=== PATIENT | female | born 1995 | race Caucasian/White ===

== ENCOUNTER 2019-10-20 00:02 | Inpatient (IN) | payer OTHER ==
[2019-10-20 00:33] LABS: APPEARANCE,URINE CLEAR; BILIRUBIN,URINE NEGATIVE (NEGATIVE); COLOR,URINE STRAW; GLUCOSE, URINE NEGATIVE (NEGATIVE); KETONES,URINE NEGATIVE (NEGATIVE); LEUKOCYTE ESTERASE,URINE TRACE (NEGATIVE); NITRITE,URINE NEGATIVE (NEGATIVE); PROTEIN,URINE NEGATIVE (NEGATIVE); UROBILINOGEN,URINE NEGATIVE mg/dL (<2.0)
[2019-10-20] MEDS ORDERED: OXYTOCIN 10 UNIT/ML VIAL ONE (00:33)
[2019-10-20] MEDS ORDERED: LIDOCAINE 1% INJ-PF (10 MG/ML) 30 ML SDV ONE (00:34)
[2019-10-20] MEDS ORDERED: MISOPROSTOL 0.2 MG TABLET ONE (00:34)
[2019-10-20] MEDS ORDERED: OXYTOCIN/0.9 % SODIUM CHLORIDE 30 UNIT/500 ML RTUINJ ONE (00:34)
[2019-10-20] MEDS ORDERED: RINGERS SOLUTION,LACTATED 1,000 ML IV PRN (00:38)
--- NOTE | 2019-10-20 00:42 | Admission Physical ---
Datetime Report Generated by CPN: 10/20/2019 00:42 CURRENT ADMISSION Chief Complaint: Uterine Contractions Indication for Induction: Not Applicable Admit Impression : Active Labor Admit Plan: Admit to Unit; Initiate Labor Protocol ALLERGIES Medication Allergies: Sulfa (Sulfonamide Antibiotics) (10/20/2019) OBSTETRICAL HISTORY EDC: 10/22/2019 00:00 : 1 Para: 0 Term: 0 : 0 SAB: 0 IAB: 0 Ectopic: 0 Livin Cesareans: 0 VBACs: 0 Multiple Births: 0 PHYSICAL EXAM General: Normal HEENT: Normal Neurologic: Normal Thyroid: Normal Heart: Normal Lungs: Normal Breast: Deferred Back: Normal Abdomen: Normal Genitourinary Exam: Normal Extremities: Normal DTRs: Normal Pelvic Type: Adequate Vital Signs: Reviewed VAGINAL EXAM Dilatation: 5 Effacement: 100 Station: -2 MEMBRANES Pooling: Negative Membranes: Intact FETUS A EGA: 39.5 Monitoring: External US FHR- Baseline: 120 Variability: Moderate 6-25bpm Decelerations: None FHR Category: Category I Estimated Weight (gm): 3600 Presentation: Vertex Admit Comment: Admit for labor. Pt wants an epidural. INFORMED CONSENT Signature: with User ID: [email or web address]
[2019-10-20] MEDS ORDERED: EPHEDRINE SULFATE INJ 50 MG/1 ML AMPULE ONE (01:07)
[2019-10-20] MEDS ORDERED: ROPIVACAINE HCL 0.2% INJ/PF (2 MG/ML) 20 ML SDV ONE (01:07)
[2019-10-20] MEDS ORDERED: FENTANYL/BUPIVACAINE/NS/PF 300 MCG/150 ML RTUINJ EPI ONE (01:07)
[2019-10-20 01:21] LABS: ABSOLUTE BASOPHILS # (AUTO) 0.1 10^3/uL (0.0-0.2); ABSOLUTE EOSINOPHILS # (AUTO) 0.1 10^3/uL (0.0-0.6); ABSOLUTE LYMPHOCYTES (AUTO) 2.1 10^3/uL (0.5-4.7); ABSOLUTE MONOCYTES (AUTO) 0.7 10^3/uL (0.1-1.4); ABSOLUTE NEUT (AUTO) 8.9 10^3/uL (1.7-8.2); BASOPHILS % (AUTO) 0.5 % (0-2); EOSINOPHILS % (AUTO) 0.6 % (0-6); LYMPHOCYTES % (AUTO) 17.6 % (13-45); MEAN CORPUSCULAR HEMOGLOBIN 29.8 pg (27.0-33.4); MEAN CORPUSCULAR HGB CONC 33.4 g/dL (32.0-36.0); MEAN CORPUSCULAR VOLUME 89 fl (80-97); MONOCYTES % (AUTO) 5.7 % (3-13); PLATELET COUNT 189 10^3/uL (150-450); RED BLOOD COUNT 4.37 10^6/uL (3.72-5.28); RED CELL DISTRIBUTION WIDTH 13.7 % (11.5-14.0); SEGMENTED NEUTROPHILS % (AUTO) 75.6 % (42-78); TOTAL CELLS COUNTED % (AUTO) 100 %; WHITE BLOOD COUNT 11.8 10^3/uL (4.0-10.5)
[2019-10-20 01:24] LABS: ALBUMIN 3.3 g/dL (3.5-5.0); ALKALINE PHOSPHATASE 141 U/L (38-126); ANION GAP 10 (5-19); ASPARTATE AMINO TRANSFERASE 26 U/L (14-36); BILIRUBIN,DIRECT 0.2 mg/dL (0.0-0.4); BILIRUBIN,TOTAL 0.3 mg/dL (0.2-1.3); BLOOD UREA NITROGEN 12 mg/dL (7-20); CALCIUM 9.8 mg/dL (8.4-10.2); CARBON DIOXIDE 19 mmol/L (22-30); CHLORIDE 108 mmol/L (98-107); GLUCOSE 96 mg/dL (75-110); POTASSIUM 4.5 mmol/L (3.6-5.0); TOTAL PROTEIN 6.3 g/dL (6.3-8.2)
[2019-10-20 01:46] LABS: UR PRO/CREAT RATIO RESULT 0.3 mg/mg (0.0-0.2); URINE CREATININE 63.3 mg/dL (16-327); URINE PROTEIN 16.6 mg/dL (<12)
[2019-10-20 02:00] LABS: URINE AMPHETAMINES SCREEN NEGATIVE; URINE BARBITURATES SCREEN NEGATIVE; URINE BENZODIAZEPINES SCREEN NEGATIVE; URINE MARIJUANA (THC) SCREEN NEGATIVE; URINE METHADONE SCREEN NEGATIVE; URINE PHENCYCLIDINE SCREEN NEGATIVE
[2019-10-20 04:35] LABS: URINE COCAINE SCREEN NEGATIVE
[2019-10-20] MEDS ORDERED: DIBUCAINE 1% OINTMENT 28 GM TP PRN (05:16)
[2019-10-20] MEDS ORDERED: MEASLES,MUMPS&RUBELLA VACC/PF 0.5 ML VIAL SUBCUT PRN (05:16)
[2019-10-20] MEDS ORDERED: OXYTOCIN/0.9 % SODIUM CHLORIDE 30 UNIT/500 ML RTUINJ IV PRN (05:16)
[2019-10-20] MEDS ORDERED: PSEUDOEPHEDRINE HCL 30 MG TABLET PO PRN (05:16)
[2019-10-20] MEDS ORDERED: BENZOCAINE/MENTHOL AEROSOL SPRAY 56 ML TOP PRN (05:16)
[2019-10-20] MEDS ORDERED: PROMETHAZINE HCL 25 MG SUPP.RECT PR PRN (05:16)
[2019-10-20] MEDS ORDERED: DIPH/PERTUSS(ACELL)/TETANUS VAC/PF 0.5 ML SYR (>=10YO) IM PRN (05:16)
[2019-10-20] MEDS ORDERED: GLYCERIN/WITCH HAZEL LEAF 1 EACH MED..WIPE TP PRN (05:16)
[2019-10-20] MEDS ORDERED: PROMETHAZINE HCL 25 MG TABLET PO PRN (05:16)
[2019-10-20] MEDS ORDERED: ACETAMINOPHEN 650 MG SUPP.RECT PR PRN (05:16)
[2019-10-20] MEDS ORDERED: ACETAMINOPHEN WITH CODEINE #3 TABLET PO PRN ×2 (05:16)
[2019-10-20] MEDS ORDERED: MAGNESIUM HYDROXIDE SUSP 30 ML UDCUP PO PRN (05:16)
[2019-10-20] MEDS ORDERED: PROMETHAZINE HCL INJ 25 MG/1 ML VIAL IV PRN (05:16)
[2019-10-20] MEDS ORDERED: NA PHOS,M-B/NA PHOS,DI-BA (ADULT) 133 ML ENEMA PR PRN (05:16)
[2019-10-20] MEDS ORDERED: ZOLPIDEM TARTRATE 5 MG TABLET PO PRN (05:16)
[2019-10-20] MEDS ORDERED: DIPHENHYDRAMINE HCL 25 MG CAPSULE PO PRN (05:16)
--- NOTE | 2019-10-20 06:34 | Delivery Summary ---
Del Sum A-C Datetime Report Generated by CPN: 10/20/2019 06:34 DELIVERY PERSONNEL DELIVERY PERSONNEL: [id number] Delivery Doctor:: Sue Hagan MD Labor and Delivery Nurse:: Charley Han RNdrywall hanger framer Nurse:: Claudia Hyde RN Highwall Drill Operator/SHOP FIRER/FIREMAN: Sona Ortiz, ST MATERNAL INFORMATION Delivery Anesthesia: Epidural Medications After Delivery: Pitocin 30 Units in 500ml NS/D5W Estimated Blood Loss (ml): 250 Delivery QBL: 100 Maternal Complications: None LABOR SUMMARY EDC: 10/22/2019 00:00 No. Babies in Womb: 1 Attempted: No Labor Anesthesia: Epidural LABOR INFORMATION Reason for Induction: Not Applicable Onset of Labor: 10/19/2019 22:00 Complete Dilatation: 10/20/2019 03:28 Oxytocin: N/A Group B Beta Strep: Negative (Annotations: Data stored by [facility] on behalf of user) Steroids Given: None Reason Steroids Not Administered: Not Applicable MEMBRANES Membranes Rupture Method: Spontaneous Rupture of Membranes: 10/20/2019 02:50 Length of Rupture (hr): 2.13 Amniotic Fluid Color: Clear Amniotic Fluid Amount: Moderate Amniotic Fluid Odor: Normal STAGES OF LABOR Stage 1 hr: 5 Stage 1 min: 28 Stage 2 hr: 1 Stage 2 min: 30 Stage 3 hr: 0 Stage 3 min: 8 Total Time in Labor hr: 7 Total Time in Labor min: 6 VAGINAL DELIVERY Episiotomy: None Laceration #1: Vaginal Laceration Extension #1: Second Degree Laceration #2: None Laceration Extension #2: N/A Laceration #3: None Laceration Extension #3: N/A Laceration Repair: Yes Laceration Repair Note: repair of small vaginal laceration just below clitoris with 3-0 chromic suture Sponge Count Correct: Vaginal Sweep Performed Sharps Count Correct: Yes CSECTION DELIVERY Primary Indication: N/A Secondary Indication: N/A CSection Incidence: N/A Labor: N/A Elective: N/A CSection Incision: N/A BABY A INFORMATION Infant Delivery Date/Time: 10/20/2019 04:58 Method of Delivery: Vaginal Nurse Controlled Delivery: No Born in Route : No : N/A Forceps: N/A Vacuum Extraction: N/A Shoulder Dystocia : No PRESENTATION/POSITION BABY A Presentation: Cephalic Cephalic Presentation: Vertex Vertex Position: Left Occipital Anterior Breech Presentation: N/A PLACENTA INFORMATION BABY A Placenta Delivery Time : 10/20/2019 05:06 Placenta Method of Delivery: Spontaneous Placenta Status: Delivered SCORES BABY A Heart Rate 1 min: >100 bpm Resp Effort 1 min: Good Cry Reflex Irritability 1 min: Cough or Sneeze or Pulls Away Muscle Tone 1 min: Active Motion Color 1 min: Blue/Pale Resuscitation Effort 1 min: Tactile Stimulation SCORE 1 MIN: 8 Heart Rate 5 min: >100 bpm Resp Effort 5 min: Good Cry Reflex Irritability 5 min: Cough or Sneeze or Pulls Away Muscle Tone 5 min: Active Motion Color 5 min: Body [place], Extremities Blue Resuscitation Effort 5 min: Tactile Stimulation SCORE 5 MIN: 9 INFANT INFORMATION BABY A Gestational Age at Delivery: 39.5 Gestational Status: Full Term- 39- 40.6 Weeks Infant Outcome : Liveborn Condition : Stable Sex: Female IDENTIFICATION BABY A Infant Verification Date/Time: 10/20/2019 05:54 ID Band Number: [id number] Mother's Name Verified: Yes Infant RN Verifying : EKrunal Acostak RN/ L. Parlor MUD WORKER WEIGHT/LENGTH BABY A Birthweight (gm): 3253 Weight (lb): 7 Infant Weight (oz): 3 Infant Length (in): 20.50 Length (cm): 52.07 CORD INFORMATION BABY A No. Cord Vessels: 3 Nuchal Cord : N/A Cord Blood Taken: Yes-For Storage (Mom's Blood type +) ASSESSMENT BABY A Complications: None Physical Findings at Delivery: Within Normal Limits Skin to Skin: Yes Transferred To: Remains with Mother BABY B INFORMATION : N/A SIGNATURES Signature: with User ID: [email or web address]
--- NOTE | 2019-10-20 06:35 | Birth Certificate Data ---
Cert Data Datetime Report Generated by CPGeoffrey: 10/20/2019 06:34 CERTIFICATE DATA 47a. Care: Yes (10/20/2019 00:02:Charley Han RN) 47b. Date of First Visit: 02/22/2019 00:00 (10/20/2019 00:02:Charley Han RN) 47c. Date of Last Visit: 10/18/2019 00:00 (10/20/2019 00:02:Charley Han RN) 47d. Number of Visits: 14 (10/20/2019 00:02:Charley Han RN) 48a. Number of Prev Live Births: 0 (10/20/2019 00:02:Charley Han RN) 48b. Now Livin (10/20/2019 00:02:Charley Han RN) 48c. Live Births Now : 0 (10/20/2019 00:02:QS system process) 48e. Losses: 0 (10/20/2019 00:02:Charley Han RN) RISK FACTORS IN THIS 49a. Diabetes: No (10/20/2019 00:02:Charley Han RN) 49b. Hypertension: No (10/20/2019 00:02:Charley Han RN) 49c. Previous Births: 0 (10/20/2019 00:02:Charley Han RN) 49d. Stillborns: No (10/20/2019 00:02:Charley Han RN) 49d. IUGR: No (10/20/2019 00:02:Charley Han RN) 49e. Infertility Treatment: No (10/20/2019 00:02:Charley Han RN) 49f. Previous Cesareans: 0 (10/20/2019 00:02:Charley Han RN) Mother's Height 50b. Height Inches: 69 (10/20/2019 05:30:QS system process) Mother's Weight 51b. Weight at Delivery (lbs): 242 (10/20/2019 05:30:QS system process) Infections Present/Treated 53a. Gonorrhea: No (10/20/2019 00:02:Charley Han RN) Results this Hospital Visit : Negative (10/20/2019 00:02:Charley Han RN) 53b. Syphilis: No (10/20/2019 00:02:Charley Han RN) 53c. Chlamydia: No (10/20/2019 00:02:Charley Han RN) Results this Hospital Visit: Negative (10/20/2019 00:02:Charley Han RN) 53d. Hepatitis B: No (10/20/2019 00:02:Charley Han RN) Results this Hospital Visit: Negative (10/20/2019 00:02:Charley Han RN) 53e. Hepatitis C: Negative (10/20/2019 00:02:Charley Han RN) 53j. Test Result: Negative (10/20/2019 00:02:Charley Han RN) Obstetric Procedures 54a, b, c. Obstetric Procedures: Ultrasound; NST (10/20/2019 00:02:Charley Han RN) Cigarette Smoking 55a. 3 Months Before Preg - Ci (10/20/2019 00:02:Charley Han RN) 55a. Packs: 0 (10/20/2019 00:02:Charley Han RN) 55b. 1st Trimester of Preg- Ci (10/20/2019 00:02:Charley Han RN) 55b. Packs: 0 (10/20/2019 00:02:Charley Han RN) 55c. 2nd Trimester of Preg- Ci (10/20/2019 00:02:Charley Han RN) 55c. Packs: 0 (10/20/2019 00:02:Charley Han RN) 55d. 3rd Trimester of Preg- Ci (10/20/2019 00:02:Charley Han RN) 55d. Packs: 0 (10/20/2019 00:02:Charley Han RN) Onset of Labor 56a. PROM >12 Hrs: 2.13 (10/20/2019 00:02:QS system process) 56b. Precipitous Labor <3 Hrs: 7 (10/20/2019 00:02:QS system process) 56c. Prolonged Labor > 20 Hrs: 7 (10/20/2019 00:02:QS system process) 57a. Induction of Labor: N/A (10/20/2019 00:02:Charley Han RN) 57c. Non-Vertex Presentation A: Vertex (10/20/2019 00:02:Sue Hagan MD ([facility])) 57d. Steroids - Lung Mat: None (10/20/2019 00:02:Sue Hagan MD ([facility])) 57d. Steroids - Lung Mat: Not Applicable (10/20/2019 00:02:MD MAYI Wiggins)) 57g. Moderate/Heavy Meconium: Clear (10/20/2019 02:50:Charley Han RN) 57h. Intolerance of Labor: N/A (10/20/2019 00:02:Charley Han RN) : N/A (10/20/2019 00:02:Charley Han RN) 57i. Epidural/Spinal Anesthesia: Epidural (10/20/2019 00:02:Sue Hagan MD ([facility])) Method of Delivery 58a. Forceps - Unsuccessful A: N/A (10/20/2019 00:02:Charley Han RN) 58b. Vacuum - Unsuccessful A: N/A (10/20/2019 00:02:Charley Han RN) 58c. Presentation at 58c. Presentation at - A : Vertex (10/20/2019 00:02:MD MAYI Wiggins)) 58c. Presentation at - A : N/A (10/20/2019 00:02:Charley Han RN) 58c. Presentation at - A : Cephalic (10/20/2019 01:57:Charley Han RN) Final Route and Method of Del 58d. Baby A Route/Delivery: Vaginal (10/20/2019 04:58:Charley Han RN) 58e. Trial of Labor Attempted: No (10/20/2019 00:02:Charley Han RN) 58e. Trial of Labor Attempted A: N/A (10/20/2019 00:02:Charley Han RN) 58e. Trial of Labor Attempted B: N/A (10/20/2019 00:02:Charley Han RN) Maternal Morbidity 59b. 3rd or 4th Degree Lacs: Vaginal (10/20/2019 00:02:Sue Hagan MD ([facility])) Birthweight Baby A: 3253 (10/20/2019 00:02:Mely Betancur, RN) 60a. Pounds : 7 (10/20/2019 00:02:QS system process) 60b. Ounces: 3 (10/20/2019 00:02:QS system process) 61. GA at Delivery Baby A: 39.5 (10/20/2019 00:02:Charleykailee Han RN) : Full Term- 39- 40.6 Weeks (10/20/2019 00:02:QS system process) 62a. 5 Minute Baby A: 9 (10/20/2019 00:02:QS system process)
[2019-10-20] MEDS ORDERED: IBUPROFEN 800 MG TABLET ONE (07:17)
[2019-10-20] MEDS: IBUPROFEN 800 MG TABLET PO SCH ×3 (07:49→22:54)
[2019-10-20] MEDS: PRENATAL VITAMIN W DHA CAPSULE PO SCH (09:22)
[2019-10-20] MEDS: FERROUS SULFATE 325 MG TABLET PO SCH ×2 (09:23→17:55)
[2019-10-20] MEDS: SENNOSIDES/DOCUSATE 8.6-50 MG 1 EACH TABLET PO SCH (09:23)
[2019-10-20] MEDS: DOCUSATE SODIUM 100 MG CAPSULE PO SCH ×2 (09:23→17:55)
[2019-10-20] MEDS: FAMOTIDINE 20 MG TABLET PO SCH ×2 (09:23→22:55)
[2019-10-21] MEDS: IBUPROFEN 800 MG TABLET PO SCH ×3 (05:45→22:22)
[2019-10-21 06:34] LABS: HEMATOCRIT 35.7 % (36.0-47.0); HEMOGLOBIN 12.1 g/dL (12.0-15.5); MEAN CORPUSCULAR HEMOGLOBIN 30.6 pg (27.0-33.4); MEAN CORPUSCULAR HGB CONC 33.9 g/dL (32.0-36.0); MEAN CORPUSCULAR VOLUME 90 fl (80-97); PLATELET COUNT 174 10^3/uL (150-450); RED BLOOD COUNT 3.96 10^6/uL (3.72-5.28); RED CELL DISTRIBUTION WIDTH 13.7 % (11.5-14.0); WHITE BLOOD COUNT 10.6 10^3/uL (4.0-10.5)
[2019-10-21] MEDS: PRENATAL VITAMIN W DHA CAPSULE PO SCH (09:27)
[2019-10-21] MEDS: SENNOSIDES/DOCUSATE 8.6-50 MG 1 EACH TABLET PO SCH (09:27)
[2019-10-21] MEDS: FERROUS SULFATE 325 MG TABLET PO SCH ×2 (09:27→17:34)
[2019-10-21] MEDS: FAMOTIDINE 20 MG TABLET PO SCH ×2 (09:27→22:21)
[2019-10-21] MEDS: DOCUSATE SODIUM 100 MG CAPSULE PO SCH ×2 (09:27→17:34)
--- NOTE | 2019-10-21 12:30 | PDOC PROGRESS REPORT ---
Subjective-OB Progress Note for:: 10/21/19 Subjective: Pt sleeping, asked not to wake her. He reports her bleeding as normal and she is doing well. She needs help with . Physical Exam (OB) Vital Signs: Temp Pulse Resp BP Pulse Ox 98.5 F 102 H 16 134/76 H 98 10/21/19 08:21 10/20/19 19:58 10/20/19 19:58 10/20/19 19:58 10/20/19 19:58 Intake & Output 10/20/19 10/21/19 10/22/19 06:59 06:59 06:59 Intake Total 1100 Balance 1100 Weight 109.8 kg - Maternal Morbidity 59. Maternal Morbidity (serious complications experinced by the mother associated with labor and delivery: None of the above - Abdomen Description: Soft Objective-Diagnostic Laboratory: 10/21/19 06:02 10/20/19 00:48 10/21/19 06:02 WBC 10.6 H RBC 3.96 Hgb 12.1 Hct 35.7 L MCV 90 MCH 30.6 MCHC 33.9 RDW 13.7 Plt Count 174 Assessment and Plan(PN) - Assessment and Plan (1) Active labor at term Is this a current diagnosis for this admission?: Yes (2) Second degree perineal laceration during delivery Is this a current diagnosis for this admission?: Yes (3) Vaginal delivery Is this a current diagnosis for this admission?: Yes - Time Spent with Patient Time with patient: Less than 15 minutes Medications reviewed and adjusted accordingly: Yes - Disposition Anticipated Discharge Disposition: Home, Self Care Anticipated Discharge Timeframe: within 24 hours
[2019-10-22] MEDS: IBUPROFEN 800 MG TABLET PO SCH (05:26)
[2019-10-22 08:10] VITALS: BP 134/75
--- NOTE | 2019-10-22 09:37 | PDOC DISCHARGE SUMMARY ---
Impression - Admit/DC Date/PCP Admission Date/Primary Care Provider: 10/20/19 00:28 ANTOINETTE TRAORE MD Discharge Date: 10/22/19 - Discharge Diagnosis (1) Active labor at term Is this a current diagnosis for this admission?: Yes (2) Second degree perineal laceration during delivery Is this a current diagnosis for this admission?: Yes (3) Vaginal delivery Is this a current diagnosis for this admission?: Yes - Additional Information Resuscitation Status: Full Code Discharge Diet: Regular Discharge Activity: Balance Activity w/Rest, Pelvic Rest Referrals: ANTOINETTE TRAORE MD [Primary Care Provider] - Home Medications: Prenat 115/Iron Fum/Folic/Dss [ 19 Tablet] 1 tab PO DAILY 10/20/19 HPI Gestational Age: 39.5 Reason(s) for Admission: Onset of Labor Procedures: NST Intrapartum Procedure(s): Spontaneous Vaginal Delivery Complication(s): Laceration-Vaginal Laceration-Degree: 2nd Hospital Course 59. Maternal Morbidity (serious complications experinced by the mother associated with labor and delivery: None of the above Results Laboratory Results: WBC 10.6 10^3/uL (4.0-10.5) H 10/21/19 06:02 RBC 3.96 10^6/uL (3.72-5.28) 10/21/19 06:02 Hgb 12.1 g/dL (12.0-15.5) 10/21/19 06:02 Hct 35.7 % (36.0-47.0) L 10/21/19 06:02 MCV 90 fl (80-97) 10/21/19 06:02 MCH 30.6 pg (27.0-33.4) 10/21/19 06:02 MCHC 33.9 g/dL (32.0-36.0) 10/21/19 06:02 RDW 13.7 % (11.5-14.0) 10/21/19 06:02 Plt Count 174 10^3/uL (150-450) 10/21/19 06:02 Lymph % (Auto) 17.6 % (13-45) 10/20/19 00:48 [place] % (Auto) 5.7 % (3-13) 10/20/19 00:48 Eos % (Auto) 0.6 % (0-6) 10/20/19 00:48 Baso % (Auto) 0.5 % (0-2) 10/20/19 00:48 Absolute Neuts (auto) 8.9 10^3/uL (1.7-8.2) H 10/20/19 00:48 Absolute Lymphs (auto) 2.1 10^3/uL (0.5-4.7) 10/20/19 00:48 Absolute Monos (auto) 0.7 10^3/uL (0.1-1.4) 10/20/19 00:48 Absolute Eos (auto) 0.1 10^3/uL (0.0-0.6) 10/20/19 00:48 Absolute Basos (auto) 0.1 10^3/uL (0.0-0.2) 10/20/19 00:48 Seg Neutrophils % 75.6 % (42-78) 10/20/19 00:48 Sodium 137.0 mmol/L (137-145) 10/20/19 00:48 Potassium 4.5 mmol/L (3.6-5.0) 10/20/19 00:48 Chloride 108 mmol/L (98-107) H 10/20/19 00:48 Carbon Dioxide 19 mmol/L (22-30) L 10/20/19 00:48 Anion Gap 10 (5-19) 10/20/19 00:48 BUN 12 mg/dL (7-20) 10/20/19 00:48 Creatinine 0.62 mg/dL (0.52-1.25) 10/20/19 00:48 Est GFR ( Amer) > 60 (>60) 10/20/19 00:48 Est GFR (MDRD) Non-Af > 60 (>60) 10/20/19 00:48 Glucose 96 mg/dL (75-110) 10/20/19 00:48 Uric Acid 6.0 mg/dL (2.5-6.2) 10/20/19 00:48 Calcium 9.8 mg/dL (8.4-10.2) 10/20/19 00:48 Total Bilirubin 0.3 mg/dL (0.2-1.3) 10/20/19 00:48 Direct Bilirubin 0.2 mg/dL (0.0-0.4) 10/20/19 00:48 Neonat Total Bilirubin Not Reportable 10/20/19 00:48 Neonat Direct Bilirubin Not Reportable 10/20/19 00:48 Neonat Indirect Bili Not Reportable 10/20/19 00:48 AST 26 U/L (14-36) 10/20/19 00:48 ALT 15 U/L (<35) 10/20/19 00:48 Alkaline Phosphatase 141 U/L (38-126) H 10/20/19 00:48 Lactate Dehydrogenase 277 U/L (120-246) H 10/20/19 00:48 Total Protein 6.3 g/dL (6.3-8.2) 10/20/19 00:48 Albumin 3.3 g/dL (3.5-5.0) L 10/20/19 00:48 Urine Color STRAW 10/20/19 00:10 Urine Appearance CLEAR 10/20/19 00:10 Urine pH 6.0 (5.0-9.0) 10/20/19 00:10 Ur Specific [place] 1.010 10/20/19 00:10 Urine Protein NEGATIVE mg/dL (NEGATIVE) 10/20/19 00:10 Urine Glucose (UA) NEGATIVE mg/dL (NEGATIVE) 10/20/19 00:10 Urine Ketones NEGATIVE mg/dL (NEGATIVE) 10/20/19 00:10 Urine Blood NEGATIVE (NEGATIVE) 10/20/19 00:10 Urine Nitrite NEGATIVE (NEGATIVE) 10/20/19 00:10 Urine Bilirubin NEGATIVE (NEGATIVE) 10/20/19 00:10 Urine Urobilinogen NEGATIVE mg/dL (<2.0) 10/20/19 00:10 Ur Leukocyte Esterase TRACE (NEGATIVE) H 10/20/19 00:10 Urine Creatinine 63.3 mg/dL (16-327) 10/20/19 00:10 Protein/Creatinin Ratio 0.3 mg/mg (0.0-0.2) H 10/20/19 00:10 Urine Total Protein 16.6 mg/dL (<12) H 10/20/19 00:10 Urine Ascorbic Acid NEGATIVE (NEGATIVE) 10/20/19 00:10 Urine Opiates Screen NEGATIVE 10/20/19 00:10 Urine Methadone Screen NEGATIVE 10/20/19 00:10 Ur Barbiturates Screen NEGATIVE 10/20/19 00:10 Ur Phencyclidine Scrn NEGATIVE 10/20/19 00:10 Ur Amphetamines Screen NEGATIVE 10/20/19 00:10 U Benzodiazepines Scrn NEGATIVE 10/20/19 00:10 Urine Cocaine Screen NEGATIVE 10/20/19 00:10 U Marijuana (THC) Screen NEGATIVE 10/20/19 00:10 RPR NONREACTIVE (NONREACTIVE) 10/20/19 00:48 Blood Type B POSITIVE 10/20/19 00:48 Antibody Screen NEGATIVE 10/20/19 00:48 Plan Plan of Treatment: f/u at [facility] 4 wks Time Spent: Less than 30 Minutes
[2019-10-22] MEDS: PRENATAL VITAMIN W DHA CAPSULE PO SCH (10:30)
[2019-10-22] MEDS: FAMOTIDINE 20 MG TABLET PO SCH (10:30)
[2019-10-22] MEDS: SENNOSIDES/DOCUSATE 8.6-50 MG 1 EACH TABLET PO SCH (10:31)
[2019-10-22] MEDS: FERROUS SULFATE 325 MG TABLET PO SCH (10:31)
[2019-10-22] MEDS: DOCUSATE SODIUM 100 MG CAPSULE PO SCH (10:31)
== END 2019-10-22 12:24 | disposition home or self-care (01) | DRG 807 ==
LOC: LC 00:02 → LR 00:28 → 2S 07:37
PROVIDERS: ADMIT Obstetrics & Gynecology; ATTEND Obstetrics & Gynecology
PROC: 10E0XZZ Delivery of Products of Conception, External Approach (ICD-10-PCS; principal; 2019-10-22)
PROC: 0KQM0ZZ Repair Perineum Muscle, Open Approach (ICD-10-PCS; 2019-10-22)
DX: O70.1 Second degree perineal laceration during delivery (principal); Z37.0 Single live birth; Z20.828 Contact with and (suspected) exposure to other viral communicable diseases; Z88.2 Allergy status to sulfonamides; Z3A.39 39 weeks gestation of pregnancy
CPT/HCPCS: 1967; 36415; 80053; 80307; 81005; 82570; 83615; 84156; 84550; 85025; 85027; 86592; 86850; 86900; 86901; J2590; J2795; J3010; J3490